=== PATIENT | male | born 1975 | race Caucasian/White ===

== ENCOUNTER 2017-07-23 13:49 | Emergency (ER) | payer BC ==
[~2017-07-23] VITALS: Ht 167.6 cm; Wt 83.9 kg
[2017-07-23 13:57] VITALS: BP_SYST 119
[2017-07-23] MEDS ORDERED: PROMETHAZINE 6.25 MG/ CODEINE 10 MG/ 5 ML PO ONE (16:00)
[2017-07-23 16:12] LABS: BILIRUBIN,URINE NEGATIVE (NEGATIVE); BLOOD, URINE NEGATIVE (NEGATIVE); CLARITY/URINE CLEAR (CLEAR); COLOR,URINE YELLOW (YELLOW); GLUCOSE,URINE NEGATIVE (NEGATIVE); KETONES,URINE NEGATIVE (NEGATIVE); LEUKOCYTE ESTERASE ,URINE NEGATIVE (NEGATIVE); NITRITE, URINE NEGATIVE (NEGATIVE); PROTEIN URINE NEGATIVE (NEGATIVE)
[2017-07-23] MEDS ORDERED: ALBUTEROL SULFATE 0.083% 2.5 MG/3 ML VIAL.NEB INH ONE (16:15)
[2017-07-23] MEDS ORDERED: LEVOFLOXACIN 500 MG TABLET PO ONE (16:30)
[2017-07-23] MEDS ORDERED: ACETAMINOPHEN 500 MG TABLET PO ONE (16:30)
[2017-07-23] MEDS ORDERED: ACETAMINOPHEN 500 MG TABLET ONE (16:34)
[2017-07-23 16:47] VITALS: BP_SYST 131
== END 2017-07-23 16:47 | disposition home or self-care (01) ==
LOC: SED 13:49
DX: J18.9 Pneumonia, unspecified organism (principal)
CPT/HCPCS: 71045; 81003; 94640; 99285